=== PATIENT | female | born 1970 | race Caucasian/White ===

== ENCOUNTER 2017-08-03 05:14 | Day surgery (SDC) | payer OTHER ==
[~2017-08-03] VITALS: Ht 160 cm; Wt 72.1 kg
--- NOTE | ~2017-08-03 | O ---
[facility] [place] [address] OPERATIVE REPORT Name: ELBA MOONEY Room #: 150-3 [facility] M.Rahat#: [id number] Admission: 08/03/17 Attend Phys: Judith Clay, Discharge: Date of : 68 Report #: [id number] THIS REPORT FOR: //name// CC: JC physician/PCP Judith Clay DATE OF SERVICE: 08/03/2017 DATE OF SERVICE: 08/03/2017 PREOPERATIVE DIAGNOSIS: Left small finger metacarpal neck fracture with rotational deformity. POSTOPERATIVE DIAGNOSIS: Left small finger metacarpal neck fracture with rotational deformity. PROCEDURE PERFORMED: Open reduction and internal fixation, left small finger metacarpal neck fracture. SURGEON: Judith Clay M.D. ANESTHESIA: General mask anesthesia. ESTIMATED BLOOD LOSS: Minimal. TOURNIQUET TIME: 24 minutes. COMPLICATIONS: None. CONDITION: Stable. DISPOSITION: Recovery room. INDICATIONS: The patient is a 46-year-old female with the above-mentioned diagnosis. She elected for operative treatment. The risks, benefits, alternatives and complications were discussed that included but were not limited to infection, damage to blood vessels or nerves, stiffness, wound healing problems, hardware problems, malunion, nonunion. An informed consent was obtained. The correct extremity was identified and labeled by myself after verbal confirmation of the patient as well as visual confirmation and signed informed consent. DESCRIPTION OF PROCEDURE: The patient was brought back to the operating room and placed on the operative room table in the supine position. She received preoperative antibiotics. Tourniquet was placed over padding on the patient's left upper extremity. The left upper extremity was sterilely prepped and draped [address] [address] OPERATIVE REPORT Name: ELBA MOONEY Room #: 150-3 [facility] Guy.#: [id number] Admission: 08/03/17 Attend Phys: Judith Clay, Discharge: Date of : 68 Report #: [id number] in the usual fashion. Final timeout was taken to verify the correct patient, operative procedure and operative site, all concurred. The arm was elevated and exsanguinated, and tourniquet was inflated. Next, fluoroscopy was brought in and an attempted closed reduction was performed; however, there was a moderate amount of callus formation in the distal fragment that was not mobile. So, a 1-cm longitudinal incision was made over the fracture site and a small [place] elevator was placed into the fracture site and the fracture was mobilized. It was then reduced quite nicely. The rotational deformity was corrected and two 0.0625-inch K-wires were placed across the fracture site with bicortical fixation. Fluoroscopy was used including live fluoroscopy, AP and lateral and oblique views. The fracture was reduced quite nicely. There was bicortical fixation and the hardware was very stable. There was no rotational deformity. The wound was thoroughly irrigated. The pins were cut beneath the skin. The wound was closed with 5-0 nylon suture. A small amount of Dermabond was placed over the pin insertion sites and over the incision. This was dried and then Adaptic and a sterile gauze dressing was placed. The ring and small fingers were taped together. She was placed in a bulky compressive dressing and a dorsal MP block splint with MP joint flexed to approximately 40 degrees. All fingers were pink with brisk capillary refill at the conclusion of the case after deflation of tourniquet. All sponge, needle counts were correct. The patient was transferred to postoperative recovery room in stable condition. By: 0756 [id number] Judith Clay MD /nt
== END 2017-08-03 09:00 | disposition home or self-care (01) ==
LOC: OR 05:14 → TBA 05:15 → OR 09:00
DX: S62.337A Displaced fracture of neck of fifth metacarpal bone, left hand, initial encounter for closed fracture (principal); J43.9 Emphysema, unspecified; F32.89 Other specified depressive episodes; F41.8 Other specified anxiety disorders; F17.210 Nicotine dependence, cigarettes, uncomplicated; X58.XXXA Exposure to other specified factors, initial encounter; Y93.89 Activity, other specified; Y92.89 Other specified places as the place of occurrence of the external cause; Y99.8 Other external cause status
CPT/HCPCS: 50010; 50101; 50386; 51291; 54118; 57091; 62110; 62900; 70005

== ENCOUNTER 2017-10-20 07:55 | Inpatient (IN) | payer OTHER ==
[2017-10-20] VITALS (8 sets, daily range): BP systolic 102–132; BP diastolic 64–83
--- NOTE | ~2017-10-20 | HC ---
[facility] [place] [address] CONSULTATION Name: ELBA MOONEY Room #: 407-P ADM IN M.R.#: [id number] Admission: 10/20/17 Attend Phys: Judith Clay, Discharge: Date of : 68 Report #: [id number] THIS REPORT FOR: //name// CC: JC physician/PCP Judith Clay DATE OF SERVICE: 10/20/2017 REASON FOR CONSULTATION: Medical management. REQUESTING PHYSICIAN: Judith Clay MD. HISTORY OF PRESENT ILLNESS: This is a 46-year-old with past medical history of metallic pin placed across the distal fifth metacarpal bone due to a fracture back in July of this year. The patient developed an osteomyelitis of the second metacarpal bone and was admitted for hardware removal. This was done with debridement of the left small finger and second metacarpal bone and removal of the hardware. Procedure was uneventful and I was asked to consult on the patient to manage her medical issues. She does not have any previous medical problems that she is aware of, including diabetes mellitus and hypertension. She was evaluated postoperatively with minimal pain at the site of the surgery. PAST MEDICAL HISTORY: None. PAST SURGICAL HISTORY: Pinning of the little finger second metacarpal bone. Status post hardware removal due to osteomyelitis. FAMILY HISTORY: Significant for coronary artery disease. SOCIAL HISTORY: She denies drug abuse; however, she continues to smoke. REVIEW OF SYSTEMS: GENERAL: No fever or chills. CARDIOVASCULAR: No chest pain or palpitation. PULMONARY: No cough or hemoptysis. GASTROINTESTINAL: No nausea or vomiting. GENITOURINARY: No frequency or urgency. MEDICATIONS: No outpatient medications. PHYSICAL EXAMINATION: GENERAL: Alert, oriented, in no apparent distress. VITAL SIGNS: Blood pressure 120/70. HEAD AND NECK: No jugular venous distention, no bruit, no thyromegaly. CHEST: Clear to auscultation bilaterally. CARDIOVASCULAR: Regular with no rub detected. [facility] [address] [place] [address] CONSULTATION Name: ELBA MOONEY Room #: [facility] IN M.R.#: [id number] Admission: 10/20/17 Attend Phys: Judith Clay, Discharge: Date of : 68 Report #: [id number] ABDOMEN: Soft, nontender with no hepatosplenomegaly. LOWER EXTREMITIES: No edema with intact peripheral pulses. UPPER EXTREMITIES: Dressing applied over the left hand. LABORATORY DATA: Reviewed. ESR is slightly elevated at 34. Hemoglobin is at 14.3. Kidney function is stable at 0.8, sodium 137, potassium 4. X-rays reviewed. Osteomyelitis of the second metacarpal tunnel present on the finger. ASSESSMENT, IMPRESSION, PLAN: 1. Osteomyelitis of the left second metacarpal bone with retained hardware. 2. Status post removal of hardware with debridement of the wound. 3. From the medical perspective, the patient seems to be stable with no active medical issues. Continue pain control. 4. Wound care. 5. Continue with the usual orthopedic postoperative care. 6. Nicotine patches. 7. Deep venous thrombosis and gastrointestinal prophylaxis. <ELECTRONICALLY SIGNED> By: Javon Bills MD 10/22/17 0850 [id number] Javon Bills MD /nt
--- NOTE | ~2017-10-20 | O ---
[facility] [place] [address] OPERATIVE REPORT Name: ELBA MOONEY Room #: 407-P [facility] IN M.R.#: [id number] Admission: 10/20/17 Attend Phys: Judith Clay, Discharge: 10/22/17 Date of : 68 Report #: [id number] THIS REPORT FOR: //name// CC: JC physician/PCP Judith Clay DATE OF SERVICE: 10/20/2017 PREOPERATIVE DIAGNOSIS: Left small finger retained hardware with osteomyelitis. POSTOPERATIVE DIAGNOSIS: Left small finger retained hardware with osteomyelitis. PROCEDURE PERFORMED: Left removal of deep hardware with debridement of skin, subcutaneous tissue and bone as well as the MP joint. SURGEON: Judith Mallory MD ANESTHESIA: General laryngeal mask anesthesia. ESTIMATED BLOOD LOSS: 5 mL. TOURNIQUET TIME: 23 minutes. COMPLICATION: None. CONDITION: Stable. DISPOSITION: To the recovery room. SPECIMENS: Sent to microbiology including swab and tissue. INDICATION: The patient is a 46-year-old female with the above mentioned diagnoses. She elects for operative treatment. The risks, benefits, alternatives, complications were discussed that included, but were not limited to infection, damage to blood vessels or nerves, incomplete ability to resolve the infection, necessitating more surgery, possibly even amputation, stiffness. I discussed her finger will not move normally due to the prolonged stiffness and subsequent infection, damage to blood vessels or nerves, wound healing problems. Informed consent was obtained. The correct extremity was identified and labeled by myself. After verbal confirmation of the patient as well as visual confirmation, a signed informed consent obtained. DESCRIPTION OF PROCEDURE: The patient was brought back to the operating room, placed on the operating table in supine position. She did not receive preop antibiotics. She did receive 1 g of vancomycin after cultures were taken and [facility] [address] [place] [address] OPERATIVE REPORT Name: JESICAELBA Room #: 407-P [facility] IN .R.#: [id number] Admission: 10/20/17 Attend Phys: Judith Clay, Discharge: 10/22/17 Date of : 68 Report #: [id number] the tourniquet was deflated. The left extremity was sterilely prepped and draped in the usual fashion. A final timeout was taken to verify the correct patient, operative procedure and operative site, all concurred. The arm was elevated but was not exsanguinated and the tourniquet inflated. Next, incision was made over each pin site. Over the ulnar pin site, there was a significant amount of purulent fluid that was obtained. The pins were removed without difficulty. Any necrotic tissue was debrided both ulnarly and radially. A curette was placed down to metacarpal and debrided the bone. There was not a significant amount of intramedullary cancellous bone. The cortex appeared to be firm. There was no abscess in the proximal phalanx. MP joint was entered. No purulent fluid was there. All these areas were thoroughly irrigated using 1 liter of antibiotic saline using a 14-guage angiocatheter. Once this was done, a deep Davin drain was placed. The subcutaneous tissue was infiltrated approximately with 5 mL of 0.25% Marcaine. The wounds were closed with 4-0 nylon suture. Fluoroscopy was brought in multiple times throughout the procedure to confirm the position of the curette in the intramedullary canal. This was confirmed on both radial and ulnar sites. The wounds were then dressed with Adaptic and sterile gauze. She was placed in a bulky compressive dressing and a soft Kerlix dressing. All fingers were pink with brisk capillary refill at the conclusion of the case. After deflation of tourniquet, all sponge and needle counts were correct. The patient transferred to postoperative recovery room in stable condition. <ELECTRONICALLY SIGNED> By: Judith Clay MD 11/08/17 1502 [id number] Judith Clay MD /nt
--- NOTE | ~2017-10-20 | HC ---
[facility] [place] [address] CONSULTATION Name: ELBA COLEMAN Room #: 407-P ADM IN M.R.#: [id number] Admission: 10/20/17 Attend Phys: Judith Clay, Discharge: Date of : 68 Report #: [id number] THIS REPORT FOR: //name// CC: JC physician/PCP Judith Clay DATE OF SERVICE: 10/20/2017 CONSULTATION: Infectious Diseases. HISTORY OF PRESENT ILLNESS: Elba Coleman is a 46-year-old white female, admitted to [facility] on 10/20/2017 for surgery on her left hand. The patient suffered a Boxer fracture in 07/2017. This required open reduction and internal fixation with 2 K-wires. The procedure was done on 08/03/2017. The patient said that initially she did well, but a few weeks later the area became quite inflamed. The patient received a number of oral antibiotic therapies without benefit. Dr. Clay diagnosed a deep infection. The bones had fused and so she brought the patient back to remove the K-wires. Infectious Disease consultation was requested. At surgery Dr. Clay, in her note, describes draining pus coming from one of the wires when it was removed in an open procedure. PAST MEDICAL HISTORY: The patient states her past history is otherwise unremarkable. She has generally been in good health without any other medical diagnoses. FAMILY HISTORY: Noncontributory. SOCIAL HISTORY: The patient is unmarried. She lives with her older daughter. She does smoke cigarettes about a pack per day as does her daughter. Tobacco counseling was given, but the patient did not seem particularly receptive. It was somewhat difficult, as this during the last 10-minute of the [employer] football game, which seemed to occupy her attention. The patient denies use of alcohol or drugs. The patient is not currently employed. REVIEW OF SYSTEMS: Negative for fevers, chills, sweats. Negative for head, neck, chest, GI or problems. She had pain in her hand preoperatively and now has postoperative discomfort. PHYSICAL EXAMINATION: GENERAL: The patient appears older than his stated age, alert, oriented, comfortable, not in any distress. VITAL SIGNS: Normal. The patient is afebrile. HEAD, NECK, CHEST, ABDOMEN: Unremarkable. EXTREMITIES: The left foot was under post-surgical dressing, which was not disturbed. [address] [address] CONSULTATION Name: ELBA COLEMANLEE Room #: 407-P [facility] IN M.R.#: [id number] Admission: 10/20/17 Attend Phys: Judith Clay, Discharge: Date of : 68 Report #: [id number] LABORATORY DATA: Normal CBC and electrolytes. Glucose is 98. Sed rate is elevated at 34. CRP is elevated at 2.2. The radiographs showed the K-wire and erosive changes suggestive of osteomyelitis. Cultures from surgery are pending. IMPRESSION: Osteomyelitis after open reduction and internal fixation with hardware of the left fifth metacarpal bone. The hardware has not been removed. We will have to continue antibiotic therapy for residual osteomyelitis. For now, we will continue vancomycin pending results of the surgical cultures. I would like to check a zinc, TSH and A1c level to make sure there are no metabolic impediments to healing. The patient has known history of diabetes and has normal blood sugar. I did discuss with the patient the benefits of tobacco cessation both for bone healing, wound healing as well as to improve immune function during the acute infection. I recommended that she not smoke for 3 months until she gets over the osteomyelitis. I anticipate she will probably need 6 weeks of IV antibiotic therapy for her osteomyelitis to resolve this infection without relapse. I appreciate the opportunity to offer input in the care of the patient. I will be happy to follow her through the weekend until Dr. Velez returns on Sunday. We will need help with [employer] to determine how we are going to be able to give 6 weeks of appropriate antibiotics as the patient currently is uninsured with Medicaid pending. It may be Sunday or Sunday before the patient has all the pieces together to go home on infusion therapy. Thank you for this consultation. <ELECTRONICALLY SIGNED> By: Bruno Giang MD 10/21/17 1348 [id number] 1319 Bruno Giang MD /nt
[2017-10-20 08:38] LABS: ABSOLUTE NEUTROPHILS 4.2 thou/uL (1.4-8.2); BASOPHILS 0.5 % (0.0-2.0); EOSINOPHILS 0.5 % (0.0-3.0); HEMATOCRIT 41.3 % (37.0-47.0); HEMOGLOBIN 14.3 gm/dL (12.0-15.0); LYMPHOCYTES 36.3 % (24.0-44.0); MCH 28.9 pg (26.0-34.0); MCHC 34.6 g/dL (28.0-37.0); MCV 83.7 fL (80.0-100.0); MONOCYTES 7.3 % (1.0-8.0); PLATELET COUNT 241 thou/uL (150-400); POLYS 55.4 % (36.0-66.0); RBC 4.94 mil/uL (4.20-5.00); RDW 12.8 % (10.5-14.5); WBC 7.6 thou/uL (4.0-11.0)
[2017-10-20 08:46] LABS: CALCIUM 8.8 mg/dL (8.5-10.1); CREATININE 0.8 mg/dL (0.6-1.0)
[2017-10-21 03:55] VITALS: BP 110/76
[2017-10-21 08:00] VITALS: BP 116/79
[2017-10-21 16:00] VITALS: BP 115/93
[2017-10-22 08:00] VITALS: BP 120/93
[2017-10-22] MEDS ORDERED: CUBICIN500 MG IVPB (13:16)
[2017-10-22 14:26] VITALS: BP 120/93
[2017-10-22 14:30] VITALS: BP 120/93
[2017-10-22 16:00] VITALS: BP 127/99
[2017-10-22 17:00] VITALS: BP 120/93
[2017-10-24] MEDS ORDERED: PEPCID20 MG PO (17:46)
[2017-10-24] MEDS ORDERED: NORCO 5-325 TA1 EACH PO (17:46)
== END 2017-10-22 18:00 | disposition home or self-care (01) | DRG 513 ==
LOC: OR 07:55 → 4N 10:39 → OR 10:47 → 4N 10:48 → ENTRNSPT 10-22 17:28 → 4N 10-22 18:00
PROVIDERS: Orthopaedic Surgery Hand Surgery
PROC: 0RP Upper Joints, Removal (ICD-10-PCS; principal; 2017-10-20)
PROC: 0PBQ0ZZ Excision of Left Metacarpal, Open Approach (ICD-10-PCS; principal; 2017-10-20)
PROC: 05HB33Z Insertion of Infusion Device into Right Basilic Vein, Percutaneous Approach (ICD-10-PCS; 2017-10-21)
PROC: B54MZZA Ultrasonography of Right Upper Extremity Veins, Guidance (ICD-10-PCS; 2017-10-21)
DX: M86.9 Osteomyelitis, unspecified (principal); T84.290A Other mechanical complication of internal fixation device of bones of hand and fingers, initial encounter; F17.210 Nicotine dependence, cigarettes, uncomplicated; Y83.8 Other surgical procedures as the cause of abnormal reaction of the patient, or of later complication, without mention of misadventure at the time of the procedure; Z82.49 Family history of ischemic heart disease and other diseases of the circulatory system; Y92.89 Other specified places as the place of occurrence of the external cause
CPT/HCPCS: 10790; 27000; 50010; 50101; 50386; 57006; 57091; 62110; 62900; 70005

== ENCOUNTER → 2017-10-23 | Outpatient (CLI) | payer OTHER ==
[~2017-10-23] MED LIST: CUBICIN500 MG IVPB; NORCO 5-325 TA1 EACH PO; PEPCID20 MG PO
[2017-10-23 14:10] VITALS: BP 127/76
== END ==
LOC: OPONC 06:32
DX: M86.8X4 Other osteomyelitis, hand (principal)
CPT/HCPCS: 95000

== ENCOUNTER → 2017-10-24 | Outpatient (CLI) | payer OTHER ==
[2017-10-24 14:20] VITALS: BP 118/84
[2017-10-24 15:00] VITALS: BP 118/84
== END ==
LOC: OPONC 07:30
DX: M86.8X4 Other osteomyelitis, hand (principal)
CPT/HCPCS: 95000

== ENCOUNTER → 2017-10-25 | Outpatient (CLI) | payer OTHER ==
[2017-10-25 16:05] VITALS: BP 125/88
== END ==
LOC: OPONC 01:51
DX: M86.8X4 Other osteomyelitis, hand (principal)
CPT/HCPCS: 95000

== ENCOUNTER → 2017-10-26 | Outpatient (CLI) | payer OTHER ==
[2017-10-26 13:20] VITALS: BP 107/83
== END ==
LOC: OPONC 01:13
DX: M86.8X4 Other osteomyelitis, hand (principal)
CPT/HCPCS: 95000

== ENCOUNTER → 2017-10-28 | Outpatient (CLI) | payer OTHER | LOC: OPONC 01:13 | DX: M86.8X4 Other osteomyelitis, hand (principal) | CPT/HCPCS: 95000 ==

== ENCOUNTER → 2017-10-29 | Outpatient (CLI) | payer OTHER ==
[2017-10-29 11:03] VITALS: BP 120/93
[2017-10-29 12:10] LABS: HEMOGLOBIN 12.8 gm/dL (12.0-15.0); MCH 29.2 pg (26.0-34.0); MCHC 34.6 g/dL (28.0-37.0); MCV 84.3 fL (80.0-100.0); RBC 4.39 mil/uL (4.20-5.00); RDW 12.4 % (10.5-14.5); WBC 9.9 thou/uL (4.0-11.0)
[2017-10-29 12:22] LABS: ALBUMIN 3.1 g/dL (3.4-5.0); CALCIUM 8.6 mg/dL (8.5-10.1); CREATININE 1.1 mg/dL (0.6-1.0); POTASSIUM 4.3 mmol/L (3.5-5.1); TOTAL BILIRUBIN 0.2 mg/dL (<0.1-1.0); TOTAL PROTEIN 7.1 g/dL (6.4-8.2)
== END ==
LOC: OPONC 00:41
PROVIDERS: Specialist
DX: M86.8X4 Other osteomyelitis, hand (principal)
CPT/HCPCS: 95000

== ENCOUNTER → 2017-10-30 | Outpatient (CLI) | payer OTHER ==
[2017-10-30 14:10] VITALS: BP 109/74
== END ==
LOC: OPONC 01:47
DX: M86.8X4 Other osteomyelitis, hand (principal)
CPT/HCPCS: 95000

== ENCOUNTER → 2017-10-31 | Outpatient (CLI) | payer OTHER ==
[2017-10-31 13:15] VITALS: BP 119/82
== END ==
LOC: OPONC 01:03
DX: M86.8X4 Other osteomyelitis, hand (principal)
CPT/HCPCS: 95000

== ENCOUNTER → 2017-11-01 | Outpatient (CLI) | payer OTHER ==
[2017-11-01 14:05] VITALS: BP 120/83
== END ==
LOC: OPONC 00:44
DX: M86.8X4 Other osteomyelitis, hand (principal)
CPT/HCPCS: 95000

== ENCOUNTER → 2017-11-02 | Outpatient (CLI) | payer OTHER ==
[2017-11-02 15:32] VITALS: BP 122/88
== END ==
LOC: OPONC 09:14
DX: M86.8X4 Other osteomyelitis, hand (principal)
CPT/HCPCS: 95000

== ENCOUNTER → 2017-11-04 | Outpatient (CLI) | payer OTHER | LOC: OPONC 10:18 | DX: M86.8X4 Other osteomyelitis, hand (principal) | CPT/HCPCS: 95000 ==

== ENCOUNTER → 2017-11-05 | Outpatient (CLI) | payer OTHER ==
[2017-11-05 10:21] LABS: HEMATOCRIT 39.8 % (37.0-47.0); HEMOGLOBIN 13.7 gm/dL (12.0-15.0); MCH 28.8 pg (26.0-34.0); MCHC 34.4 g/dL (28.0-37.0); MCV 83.6 fL (80.0-100.0); RBC 4.75 mil/uL (4.20-5.00); RDW 12.5 % (10.5-14.5); WBC 10.6 thou/uL (4.0-11.0)
[2017-11-05 10:35] LABS: ALBUMIN 3.8 g/dL (3.4-5.0); POTASSIUM 4.1 mmol/L (3.5-5.1); TOTAL BILIRUBIN 0.4 mg/dL (<0.1-1.0)
[2017-11-05 10:51] VITALS: BP 119/88
== END ==
LOC: OPONC 03:05
PROVIDERS: Specialist
DX: M86.8X4 Other osteomyelitis, hand (principal)
CPT/HCPCS: 95000

== ENCOUNTER → 2017-11-06 | Outpatient (CLI) | payer OTHER ==
[2017-11-06 14:16] VITALS: BP 120/77
== END ==
LOC: OPONC 00:27
DX: M86.8X4 Other osteomyelitis, hand (principal)
CPT/HCPCS: 95000

== ENCOUNTER → 2017-11-07 | Outpatient (CLI) | payer OTHER ==
[2017-11-07 13:20] VITALS: BP 120/77
== END ==
LOC: OPONC 00:35
DX: M86.8X4 Other osteomyelitis, hand (principal)
CPT/HCPCS: 95000

== ENCOUNTER → 2017-11-09 | Outpatient (CLI) | payer OTHER ==
[2017-11-09 13:33] VITALS: BP 122/84
== END ==
LOC: OPONC 02:05
DX: M86.8X4 Other osteomyelitis, hand (principal)
CPT/HCPCS: 95000

== ENCOUNTER → 2017-11-10 | Outpatient (CLI) | payer OTHER | LOC: OPONC 09:05 | DX: M86.8X4 Other osteomyelitis, hand (principal) | CPT/HCPCS: 95000 ==

== ENCOUNTER → 2017-11-11 | Outpatient (CLI) | payer OTHER | LOC: OPONC 09:10 | DX: M86.8X4 Other osteomyelitis, hand (principal) | CPT/HCPCS: 95000 ==

== ENCOUNTER → 2017-11-12 | Outpatient (CLI) | payer OTHER ==
[2017-11-12 10:52] LABS: HEMATOCRIT 41.2 % (37.0-47.0); HEMOGLOBIN 14.1 gm/dL (12.0-15.0); MCHC 34.1 g/dL (28.0-37.0); MCV 84.9 fL (80.0-100.0); RBC 4.85 mil/uL (4.20-5.00); RDW 12.8 % (10.5-14.5); WBC 8.1 thou/uL (4.0-11.0)
[2017-11-12 11:08] LABS: ALBUMIN 3.6 g/dL (3.4-5.0); CALCIUM 8.5 mg/dL (8.5-10.1); CREATININE 1.1 mg/dL (0.6-1.0); POTASSIUM 3.9 mmol/L (3.5-5.1); TOTAL BILIRUBIN 0.2 mg/dL (<0.1-1.0); TOTAL PROTEIN 7.6 g/dL (6.4-8.2)
[2017-11-12 11:34] VITALS: BP 115/94
== END ==
LOC: OPONC 00:26
PROVIDERS: Specialist
DX: M86.8X4 Other osteomyelitis, hand (principal)
CPT/HCPCS: 95000

== ENCOUNTER → 2017-11-14 | Outpatient (CLI) | payer OTHER ==
[2017-11-14 13:30] VITALS: BP 124/84
== END ==
LOC: OPONC 02:05
DX: M86.8X4 Other osteomyelitis, hand (principal)
CPT/HCPCS: 95000

== ENCOUNTER → 2017-11-16 | Outpatient (CLI) | payer OTHER ==
[2017-11-16 14:30] VITALS: BP 124/93
== END ==
LOC: OPONC 00:23
DX: M86.8X4 Other osteomyelitis, hand (principal)
CPT/HCPCS: 95000

== ENCOUNTER → 2017-11-19 | Outpatient (CLI) | payer OTHER ==
[2017-11-19 12:10] LABS: HEMOGLOBIN 13.8 gm/dL (12.0-15.0); MCH 29.3 pg (26.0-34.0); MCHC 34.5 g/dL (28.0-37.0); MCV 84.9 fL (80.0-100.0); RBC 4.71 mil/uL (4.20-5.00); WBC 9.2 thou/uL (4.0-11.0)
[2017-11-19 12:26] LABS: ALBUMIN 3.9 g/dL (3.4-5.0); CALCIUM 9.2 mg/dL (8.5-10.1); POTASSIUM 4.1 mmol/L (3.5-5.1); TOTAL BILIRUBIN 0.3 mg/dL (<0.1-1.0); TOTAL PROTEIN 7.8 g/dL (6.4-8.2)
[2017-11-19 14:30] VITALS: BP 126/95
== END ==
LOC: OPONC 00:25
PROVIDERS: Specialist
DX: M86.8X4 Other osteomyelitis, hand (principal)
CPT/HCPCS: 95000

== ENCOUNTER → 2017-11-21 | Outpatient (CLI) | payer OTHER ==
[2017-11-21 13:40] VITALS: BP 117/84
== END ==
LOC: OPONC 02:18
DX: M86.8X4 Other osteomyelitis, hand (principal)
CPT/HCPCS: 95000

== ENCOUNTER → 2017-11-22 | Outpatient (CLI) | payer OTHER ==
[2017-11-22 14:25] VITALS: BP 128/82
== END ==
LOC: OPONC 00:25 → CATH 14:24 → OPONC 16:36
DX: M86.8X4 Other osteomyelitis, hand (principal)
CPT/HCPCS: 95000

== ENCOUNTER → 2017-11-24 | Outpatient (CLI) | payer OTHER | LOC: OPONC 09:00 | DX: M86.8X4 Other osteomyelitis, hand (principal) | CPT/HCPCS: 95000 ==

== ENCOUNTER → 2017-11-25 | Outpatient (CLI) | payer OTHER | LOC: OPONC 09:00 | DX: M86.8X4 Other osteomyelitis, hand (principal) | CPT/HCPCS: 95000 ==

== ENCOUNTER → 2017-11-26 | Outpatient (CLI) | payer OTHER ==
[2017-11-26 12:32] LABS: HEMATOCRIT 38.4 % (37.0-47.0); HEMOGLOBIN 13.2 gm/dL (12.0-15.0); MCHC 34.5 g/dL (28.0-37.0); MCV 84.1 fL (80.0-100.0); RBC 4.57 mil/uL (4.20-5.00); RDW 12.8 % (10.5-14.5); WBC 9.6 thou/uL (4.0-11.0)
[2017-11-26 12:51] LABS: ALBUMIN 3.4 g/dL (3.4-5.0); CALCIUM 8.5 mg/dL (8.5-10.1); CREATININE 0.9 mg/dL (0.6-1.0); POTASSIUM 4.1 mmol/L (3.5-5.1); TOTAL BILIRUBIN 0.2 mg/dL (<0.1-1.0); TOTAL PROTEIN 7.2 g/dL (6.4-8.2)
[2017-11-26 16:53] VITALS: BP 136/84
[2017-11-27 10:08] LABS: HIV ANTIBODY Non Reactive (Non Reactive)
== END ==
LOC: OPONC 00:35
PROVIDERS: Specialist
DX: M86.8X4 Other osteomyelitis, hand (principal)
CPT/HCPCS: 95000

== ENCOUNTER → 2017-11-27 | Outpatient (CLI) | payer OTHER ==
[2017-11-27 13:50] VITALS: BP 151/88
== END ==
LOC: OPONC 03:35
DX: M86.8X4 Other osteomyelitis, hand (principal)
CPT/HCPCS: 95000

== ENCOUNTER → 2017-11-28 | Outpatient (CLI) | payer OTHER ==
[2017-11-28 15:00] VITALS: BP 129/85
== END ==
LOC: OPONC 00:48
DX: M86.8X4 Other osteomyelitis, hand (principal)
CPT/HCPCS: 95000

== ENCOUNTER → 2017-11-30 | Outpatient (CLI) | payer OTHER ==
[2017-11-30 14:31] VITALS: BP 108/77
== END ==
LOC: OPONC 08:52
DX: M86.8X4 Other osteomyelitis, hand (principal)
CPT/HCPCS: 95000

== ENCOUNTER → 2017-12-01 | Outpatient (CLI) | payer OTHER | LOC: OPONC 04:56 | DX: M86.8X4 Other osteomyelitis, hand (principal) | CPT/HCPCS: 95000 ==

== ENCOUNTER → 2017-12-02 | Outpatient (CLI) | payer OTHER | LOC: OPONC 00:56 | DX: M86.8X4 Other osteomyelitis, hand (principal) | CPT/HCPCS: 95000 ==

== ENCOUNTER → 2017-12-05 | Outpatient (CLI) | payer OTHER ==
[2017-12-05 13:15] VITALS: BP 120/81
[2017-12-05 14:03] LABS: HEMATOCRIT 41.3 % (37.0-47.0); HEMOGLOBIN 14.1 gm/dL (12.0-15.0); MCH 28.9 pg (26.0-34.0); MCHC 34.1 g/dL (28.0-37.0); MCV 84.9 fL (80.0-100.0); RBC 4.87 mil/uL (4.20-5.00); RDW 12.8 % (10.5-14.5); WBC 9.2 thou/uL (4.0-11.0)
[2017-12-05 14:20] LABS: ALBUMIN 3.7 g/dL (3.4-5.0); CALCIUM 9.1 mg/dL (8.5-10.1); CREATININE 0.9 mg/dL (0.6-1.0); POTASSIUM 4.4 mmol/L (3.5-5.1); TOTAL BILIRUBIN 0.2 mg/dL (<0.1-1.0); TOTAL PROTEIN 7.4 g/dL (6.4-8.2)
== END ==
LOC: OPONC 12-04 09:09
PROVIDERS: Specialist
DX: M86.8X4 Other osteomyelitis, hand (principal); B95.62 Methicillin resistant Staphylococcus aureus infection as the cause of diseases classified elsewhere
CPT/HCPCS: 95000

== ENCOUNTER → 2017-12-06 | Outpatient (CLI) | payer OTHER ==
[2017-12-06 15:10] VITALS: BP 125/76
== END ==
LOC: OPONC 00:13
DX: M86.8X4 Other osteomyelitis, hand (principal); B95.62 Methicillin resistant Staphylococcus aureus infection as the cause of diseases classified elsewhere
CPT/HCPCS: 95000

== ENCOUNTER → 2017-12-07 | Outpatient (CLI) | payer OTHER ==
[2017-12-07 10:15] VITALS: BP 115/83
== END ==
LOC: OPONC 00:28
DX: M86.8X4 Other osteomyelitis, hand (principal); B95.62 Methicillin resistant Staphylococcus aureus infection as the cause of diseases classified elsewhere
CPT/HCPCS: 95000